=== PATIENT | male | born 1995 | race Caucasian/White ===

== ENCOUNTER → 2022-02-22 | Emergency (ER) | payer SELFPAY ==
[~2022-02-22] VITALS: Ht 188 cm; Wt 95.3 kg
--- NOTE | 2022-02-22 11:10 | NUR ---
BIB [facility], FOUND VOMITING AND LAYING ON A SIDEWALK BY [employer],ADMIT TO USING "METH AND DOPE "LAST NIGHT. PLACED ON BED, RESPONDING TO VERBAL STIMULI, BREATHING EVEN AND UNLABORED SATURATING AT 98%RA
--- NOTE | 2022-02-22 11:15 | NUR ---
SPOUTER AT BED SIDE
[2022-02-22 11:38] LABS: BASOPHILS % (AUTO) 0.4 % (0.0-2.0); EOSINOPHILS % (AUTO) 0.9 % (0.0-6.0); HEMATOCRIT 38 % (39-51); HEMOGLOBIN 12.7 g/dL (13.5-17.5); LYMPHOCYTES % (AUTO) 46.6 % (20.0-44.0); MEAN CORPUSCULAR HGB CONC 33 g/dl (31.0-36.0); MEAN CORPUSCULAR VOLUME 93 fL (80-96); MONOCYTES # (AUTO) 0.5 K/uL (0.1-1.30); MONOCYTES % (AUTO) 7.1 % (2.0-12.0); NEUTROPHILS # (AUTO) 2.9 K/uL (1.8-8.9); PLATELET COUNT (AUTO) 277 K/uL (150-450); RED BLOOD CELL COUNT(AUTO) 4.09 MIL/uL (4.5-6.0); WHITE BLOOD COUNT (AUTO) 6.5 K/uL (4.3-11.0)
--- NOTE | 2022-02-22 11:41 | NUR ---
URINE SAMPLE SENT TO LAB
[2022-02-22 11:50] LABS: CALCIUM, SERUM 8.2 mg/dL (8.5-10.1); CREATININE 0.8 mg/dL (0.6-1.3); POTASSIUM 3.3 mmol/L (3.5-5.1)
[2022-02-22 11:56] LABS: ALBUMIN 3.5 g/dL (3.4-5.0); BILIRUBIN,DIRECT 0.1 mg/dL (0.0-0.2); BILIRUBIN,TOTAL 0.4 mg/dL (0.2-1.0)
[2022-02-22 12:44] LABS: BILIRUBIN,URINE NEGATIVE (NEGATIVE); COLOR,URINE YELLOW (YELLOW); LEUKOCYTE ESTERASE ,URINE NEGATIVE (NEGATIVE); NITRITE, URINE NEGATIVE (NEGATIVE); PROTEIN,URINE NEGATIVE (NEGATIVE); UGLUCOSE NEGATIVE (NEGATIVE); UROBILINOGEN,URINE 0.2 EU/dL (0.2)
[2022-02-22 12:53] LABS: BACTERIA,URINE None seen /HPF (None Seen); RBC,URINE 0-2 /HPF (0-2); SQUAMOUS EPITHELIAL CELL,UR Rare /HPF (None Seen); WBC,URINE 0-2 /HPF (0-3)
--- NOTE | 2022-02-22 14:15 | NUR ---
PATIENT ELOPED DR SHEIKH AWARE.
[2022-02-22 14:37] VITALS: BP 138/85
== END | disposition left against medical advice (07) ==
LOC: ER 16:45
DX: F10.129 Alcohol abuse with intoxication, unspecified (principal); Z60.2 Problems related to living alone; Y90.6 Blood alcohol level of 120-199 mg/100 ml
CPT/HCPCS: 36415; 80048-TC; 80076-TC; 81001; 85025-TC; G0480